=== PATIENT | female | born 1975 | race Caucasian/White ===

== ENCOUNTER 2017-12-25 17:08 | Emergency (ER) | payer BC ==
[2017-12-25] MEDS ORDERED: ORPHENADRINE 30 MG/ML 2 ML VIAL IM STA (19:27)
[2017-12-25] MEDS ORDERED: KETOROLAC 30 MG/ML 1 ML VIAL IM STA (19:27)
--- NOTE | 2017-12-25 19:38 | ED ---
Back Pain HPI - General Source: patient, RN notes reviewed Mode of arrival: ambulatory Limitations: no limitations <Anaya Hall - Last Filed: 12/25/17 19:28> <Ashley Malik - Last Filed: 12/25/17 19:52> - General Chief Complaint: Back Pain/Injury Stated Complaint: Back Pain Time Seen by Provider: 12/25/17 19:17 - History of Present Illness Initial Comments: This is a 42-year-old female who presents to the emergency department chief complaint of back pain. Patient states that she has had an ache in her right scapula. She states it started a few days ago after decorating for Halloween by carrying large pumpkins and bigg of hay. Patient states that she was very active, cleaning and mopping her house. 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 She states that the pain was excruciating. She states that the spasm and pain is brought on by moving her right arm and her neck. She denies any injuries, trauma or falls. She denies any neck pain. Denies fevers or chills, chest pain or shortness of breath, abdominal pain, nausea or vomiting. (Anaya Hall) - Related Data Home Medications Medication Instructions Recorded Confirmed Acetaminophen [Tylenol] 1,000 mg PO Q4-6H PRN 12/25/17 12/25/17 Gabapentin [Neurontin] 300 mg PO HS 12/25/17 12/25/17 Hydrocodone/Acetaminophen [[place] 1 tab PO Q6H PRN 12/25/17 12/25/17 7.5-325] Ibuprofen [Advil] 600 mg PO Q8HR PRN 12/25/17 12/25/17 Sertraline HCl [Zoloft] 50 mg PO HS 12/25/17 12/25/17 Zolpidem Tartrate [Ambien] 10 mg PO HS PRN 12/25/17 12/25/17 Previous Rx's Medication Instructions Recorded Cyclobenzaprine [Flexeril] 10 mg PO TID #15 tab 12/25/17 Ibuprofen 600 mg PO Q6HR #20 tablet 12/25/17 Allergies Allergy/AdvReac Type Severity Reaction Status Date / Time No Known Allergies Allergy Verified 12/25/17 17:40 Review of Systems ROS Other: All systems not noted in ROS Statement are negative. <Anaya Hall - Last Filed: 12/25/17 19:28> ROS Other: All systems not noted in ROS Statement are negative. <Ashley Malik P - Last Filed: 12/25/17 19:52> ROS Statement: Those systems with pertinent positive or pertinent negative responses have been documented in the HPI. Past Medical History Past Medical History: No Reported History History of Any Multi-Drug Resistant Organisms: None Reported Past Surgical History: Section, Cholecystectomy Additional Past Surgical History / Comment(s): tummy tuck, C section x 3, knee injections Past Psychological History: No Psychological Hx Reported Smoking Status: Former smoker Past Alcohol Use History: None Reported Past Drug Use History: None Reported <Anaya Hall - Last Filed: 12/25/17 19:28> General Exam Limitations: no limitations Back exam: Present: normal inspection, full ROM, tenderness (tenderness on palpation of paravertebral muscles at level of the mid-scapula ). Absent: paraspinal tenderness, vertebral tenderness <Anaya Hall - Last Filed: 12/25/17 19:28> <Ashley Malik P - Last Filed: 12/25/17 19:52> - General Exam Comments Initial Comments: General: Awake and alert, well-developed; in no apparent distress. HEENT: Head atraumatic, normocephalic. Pupils are equal, round and reactive to light. Extraocular movements intact. Oropharynx moist without erythema or exudate. Neck: Supple. Normal ROM. No tenderness. Cardiovascular: Regular rate and rhythm. No murmurs, rubs or gallops. Chest symmetrical. Respiratory: Lungs clear to auscultation bilaterally. No wheezes, rales or rhonchi. Normal respiratory effort with no use of accessory muscles. Musculoskeletal: Normal ROM, no tenderness bilateral upper and lower extremities. Ambulating normally. Skin: [place], warm and dry without rashes or lesions. Neurological: Alert and oriented x3. CN II-XII grossly intact. Speech is fluent and answers are appropriate. No focal neuro deficits. Psychiatric: Normal mood and affect. No overt signs of depression or anxiety noted. (Anaya Hall) Vital Signs 12/25/17 17:40 Temperature 98.3 F Pulse Rate 73 Respiratory 18 Rate Blood Pressure 143/82 O2 Sat by Pulse 96 Oximetry Medical Decision Making <Anaya Hall - Last Filed: 12/25/17 19:28> <Ashley Malik - Last Filed: 12/25/17 19:52> - Medical Decision Making This is a 42-year-old female who presents to the emergency department with chief complaint of back pain. Patient reports having right scapular pain for a few days after carrying pumpkins and large bigg of hay for Halloween decorating. She states that today she reached for her car keys, felt a sudden tightening and contraction in the muscle which caused excruciating pain. She reports pain is brought on by moving her neck and her right upper extremity. Patient is neurovascularly intact. No injuries, falls or trauma. Patient given Norflex and Toradol in the emergency department. Likely suffering from muscle strain. She will be discharged home with a prescription for ibuprofen and Flexeril. She is in no acute distress and will be discharged home at this time. She is in agreement with plan and voices understanding. All questions were answered. (Anaya Hall) I was available for consultation in the emergency department. The history and physical exam were done by the midlevel provider. I was consulted for this patient's care. I reviewed the case with the midlevel provider and based on their presentation of the patient, I agree with the assessment, medical decision making and plan of care as documented. (Ashley Malik) Disposition Is patient prescribed a controlled substance at d/c from ED?: No Time of Disposition: 19:40 <Anaya Hall - Last Filed: 12/25/17 19:28> <Ashley Malik - Last Filed: 12/25/17 19:52> Clinical Impression: Muscle strain of right upper back Disposition: HOME SELF-CARE Condition: Good Instructions: Muscle Strain (ED), Musculoskeletal Pain (ED) Additional Instructions: Please take medications as prescribed. Please follow up with primary care provider within 1-2 days. Return to emergency department if symptoms should worsen or any concerns arise. Prescriptions: Cyclobenzaprine [Flexeril] 10 mg PO TID #15 tab Ibuprofen 600 mg PO Q6HR #20 tablet Referrals: Zeus Ramírez MD [Primary Care Provider] - 1-2 days
[2017-12-25 20:16] VITALS: BP 134/66; PULSE 88; RESP 16; TEMP 98.2
== END 2017-12-25 20:16 | disposition home or self-care (01) ==
LOC: EC 17:08
DX: S29.012A Strain of muscle and tendon of back wall of thorax, initial encounter (principal); Z87.891 Personal history of nicotine dependence; Z79.899 Other long term (current) drug therapy; X50.0XXA Overexertion from strenuous movement or load, initial encounter
CPT/HCPCS: 99283; 96372 ×2; J2360; J1885

== ENCOUNTER 2022-07-17 18:19 | Emergency (ER) | payer BC ==
[2022-07-17 18:25] VITALS: RESP 18; TEMP 98
[2022-07-17] MEDS ORDERED: SODIUM CHLORIDE 0.9% 1,000 ML IV STA (18:33)
[2022-07-17] MEDS ORDERED: PANTOPRAZOLE 40 MG/10 ML VIAL IVP STA (18:46)
[2022-07-17] MEDS ORDERED: FAMOTIDINE 20 MG/2 ML VIAL IV STA (18:46)
--- NOTE | 2022-07-17 18:48 | ED ---
Chest Pain HPI - General Chief Complaint: Chest Pain Stated Complaint: Chest Pain Time Seen by Provider: 07/17/22 18:33 Source: patient Mode of arrival: ambulatory Limitations: no limitations - History of Present Illness Initial Comments: Patient is a 46-year-old female presents to the emergency department for chest pain. Over the past 5 days patient has had 2 episodes of chest pain, one more patient was sleeping and it woke her up, the other patient was lounging at home. Pain was in her lower chest which she describes as an aching and burning. It was associated with diaphoresis. No alleviating or precipitating, or exacerbating factors. No chest pain currently. She denies shortness of breath, nausea, vomiting. No fever, chills, cough, cold-like symptoms. Patient denies history of cardiac disease. She does have family history of cardiac disease including father who had myocardial infarction in his 40s. She is a nonsmoker. Denies illicit drug use. Denies alcohol use. - Related Data Home Medications Medication Instructions Recorded Confirmed Gabapentin [Neurontin] 300 mg PO TID PRN 12/25/17 07/17/22 Sertraline HCl [Zoloft] 50 mg PO HS 12/25/17 07/17/22 HYDROcodone/APAP 5-325MG [[place] 1 tab PO TID PRN 07/17/22 07/17/22 5-325] Phentermine HCl [Adipex-P] 37.5 mg PO DAILY 07/17/22 07/17/22 Zolpidem [Ambien] 5 mg PO HS PRN 07/17/22 07/17/22 Previous Rx's Medication Instructions Recorded Famotidine [Pepcid] 20 mg PO BID #28 tablet 07/17/22 Pantoprazole [Protonix] 40 mg PO DAILY #14 tab 07/17/22 Allergies Allergy/AdvReac Type Severity Reaction Status Date / Time No Known Allergies Allergy Verified 07/17/22 19:10 Review of Systems ROS Statement: Those systems with pertinent positive or pertinent negative responses have been documented in the HPI. ROS Other: All systems not noted in ROS Statement are negative. Past Medical History Past Medical History: No Reported History History of Any Multi-Drug Resistant Organisms: None Reported Past Surgical History: Section, Cholecystectomy Additional Past Surgical History / Comment(s): tummy robyn, C section x 3, knee injections, partial left knee replacement, Past Psychological History: No Psychological Hx Reported Past Alcohol Use History: None Reported Past Drug Use History: None Reported General Exam Limitations: no limitations General appearance: alert, in no apparent distress Head exam: Present: atraumatic, normocephalic, normal inspection Eye exam: Present: normal appearance, PERRL, EOMI. Absent: scleral icterus, conjunctival injection, periorbital swelling Neck exam: Present: normal inspection. Absent: tenderness, meningismus, ly mphadenopathy Respiratory exam: Present: normal lung sounds bilaterally. Absent: respiratory distress, wheezes, rales, rhonchi, stridor Cardiovascular Exam: Present: regular rate, normal rhythm, normal heart sounds. Absent: systolic murmur, diastolic murmur, rubs, gallop, clicks GI/Abdominal exam: Present: soft, normal bowel sounds. Absent: distended, tenderness, guarding, rebound, rigid Neurological exam: Present: alert, oriented X3, CN II-XII intact Psychiatric exam: Present: normal affect, normal mood Skin exam: Present: warm, dry, intact, normal color. Absent: rash Course Vital Signs 07/17/22 07/17/22 18:21 20:30 Temperature 98.0 F Pulse Rate 73 63 Respiratory 18 18 Rate Blood Pressure 169/94 147/96 O2 Sat by Pulse 99 100 Oximetry Chest Pain MDM - MDM EKG taken at 18:32, interpreted by me Sinus rhythm, no ST segment or T-wave abnormality Ventricular rate 63, VA interval 160, QRS duration 98, QTc 402 Was pt. sent in by a medical professional or institution (, PA, MAINTENANCE PERSON, urgent care, hospital, or [facility]...) When possible be specific @ -No Did you speak to anyone other than the patient for history (EMS, parent, family, police, friend...)? What history was obtained from this source @ -No Did you review nursing and triage notes (agree or disagree)? Why? @ -I reviewed and agree with nursing and triage notes Were old charts reviewed (outside hosp., previous admission, EMS record, old EKG, old radiological studies, urgent care reports/EKG's, [facility] records)? Report findings @ -No old charts were reviewed Differential Diagnosis (chest pain, altered mental status, abdominal pain women, abdominal pain men, vaginal bleeding, weakness, fever, dyspnea, syncope, headache, dizziness, GI bleed, back pain, seizure, CVA, palpatations, mental health)? @ -Differential Chest Pain: Stable Angina, Unstable Angina, STEMI, NSTEMI Aortic Dissection, Pneumothorax, Musculoskeletal, Esophageal Spasm GERD, Cholecystitis, Pancreatitis, Zoster, this is not meant to be an all-inclusive list. EKG interpreted by me (3pts min.). @ -As above X-rays interpreted by me (1pt min.). @ -Yes, chest x-ray negative for acute process CT interpreted by me (1pt min.). @ -None done U/S interpreted by me (1pt. min.). @ -None done What testing was considered but not performed or refused? (CT, X-rays, U/S, labs)? Why? @ -None What meds were considered but not given or refused? Why? @ -None Did you discuss the management of the patient with other professionals (professionals i.e. , PA, MAINTENANCE PERSON, lab, RT, psych nurse, director social service, lye machine operator, teacher, business services officer, social work case manager)? Give summary @ -No Was smoking cessation discussed for >3mins.? @ -No Was critical care preformed (if so, how long)? @ -No Were there social determinants of health that impacted care today? How? (Homelessness, low income, unemployed, alcoholism, drug addiction, transportation, low edu. Level, literacy, decrease access to med. care, senior care, rehab)? @ -No Was there de-escalation of care discussed even if they declined (Discuss DNR or withdrawal of care, Hospice)? DNR status @ -No What co-morbidities impacted this encounter? (DM, HTN, Smoking, COPD, CAD, Cancer, CVA, ARF, Chemo, Hep., AIDS, mental health diagnosis, sleep apnea, morbid obesity)? @ -None Was patient admitted / discharged? Hospital course, mention meds given and route, prescriptions, significant lab abnormalities, going to OR and other pertinent info. @ -Patient presenting for chest pain episodes. Patient feeling well currently vitals within normal limits. EKG shows sinus rhythm with no evidence of acute ischemia. Laboratory studies obtained. D-dimer and troponin are within normal limits. Chest x-ray obtained showing no acute process. Results discussed with patient. Heart score is 3. We discussed admission for cardiology evaluation as patient has never had stress test or echocardiogram. It is also reasonable for patient to be evaluated outpatient with strict return parameters. Patient requesting discharge. She was discharged stable condition with cardiology referral. Undiagnosed new problem with uncertain prognosis? @ -No Drug Therapy requiring intensive monitoring for toxicity (Heparin, Nitro, Insulin, Cardizem)? @ -No Were any procedures done? @ -No Diagnosis/symptom? @ -Chest pain Acute, or Chronic, or Acute on Chronic? @ -Acute Uncomplicated (without systemic symptoms) or Complicated (systemic symptoms)? @ -default Side effects of treatment? @ -No Exacerbation, Progression, or Severe Exacerbation? @ -No Poses a threat to life or bodily function? How? (Chest pain, [place], [place], pneumonia, PE, COPD, DKA, ARF, appy, cholecystitis, CVA, Diverticulitis, Homicidal, Suicidal, threat to staff... and all critical care pts) @ -No Dr. Adam is my attending Disposition Clinical Impression: Chest pain Disposition: HOME SELF-CARE Condition: Good Instructions (If sedation given, give patient instructions): Chest Pain (ED), GERD (Gastroesophageal Reflux Disease) (ED) Additional Instructions: Take medication as directed. Follow-up with cardiology in 1-2 days. Return to emergency department if you experience new, concerning, or worsening symptoms. Prescriptions: Famotidine [Pepcid] 20 mg PO BID #28 tablet Pantoprazole [Protonix] 40 mg PO DAILY #14 tab Is patient prescribed a controlled substance at d/c from ED?: No Referrals: Zeus Ramírez MD [Primary Care Provider] - 1-2 days Josiah Manuel MD [STAFF PHYSICIAN] - 1-2 days
[2022-07-17 19:06] LABS: Basophils # (A) 0.1 k/uL (0-0.2); Basophils % (A) 1 %; Eosinophils # (A) 0.1 k/uL (0-0.7); Eosinophils % (A) 2 %; HCT 37.1 % (34.0-46.0); HGB 12.7 gm/dL (11.4-16.0); Lymphocytes # (A) 1.9 k/uL (1.0-4.8); Lymphocytes % (A) 23 %; MCH 28.7 pg (25.0-35.0); MCHC 34.2 g/dL (31.0-37.0); MCV 84.1 fL (80.0-100.0); Mean Platelet Volume 7.8; Monocytes # (A) 0.3 k/uL (0-1.0); Monocytes % (A) 4 %; Neutrophils # (A) 5.9 k/uL (1.3-7.7); Neutrophils % (A) 70 %; Platelet Count 325 k/uL (150-450); RBC 4.42 m/uL (3.80-5.40); RDW 13.2 % (11.5-15.5); WBC 8.4 k/uL (3.8-10.6)
[2022-07-17 19:14] LABS: Appearance,Urine Clear (Clear); Bilirubin,Urine Negative (Negative); Blood,Urine Negative (Negative); Color,Urine Light Yellow; Glucose,Urine (UA) Negative (Negative); Ketones,Urine Negative (Negative); Leukocyte Esterase,Urine Negative (Negative); Nitrite,Urine Negative (Negative); Protein,Urine Negative (Negative); Specific Gravity,Urine 1.006 (1.001-1.035); Urobilinogen,Urine <2.0 mg/dL (<2.0)
--- NOTE | 2022-07-17 19:19 | XR ---
EXAMINATION TYPE: XR chest 2V DATE OF EXAM: 07/17/2022 7:12 PM COMPARISON: None TECHNIQUE: XR chest 2V . CLINICAL INDICATION:Female, 46 years old with history of Chest Pain; FINDINGS: Lungs/Pleura: There is no evidence of pleural effusion, focal consolidation, or pneumothorax. Pulmonary vascularity: Unremarkable. Heart/mediastinum: Cardiomediastinal silhouette is unremarkable. Musculoskeletal: No acute osseous pathology. IMPRESSION: No acute cardiopulmonary disease/process.
[2022-07-17 19:27] LABS: ALT 15 U/L (4-34); AST 19 U/L (14-36); African American GFR (CKD) >90 (>60 ml/min/1.73 sqM); Albumin 4.5 g/dL (3.5-5.0); Alkaline Phosphatase 67 U/L (38-126); Anion Gap 10 mmol/L; Blood Urea Nitrogen 7 mg/dL (7-17); Calcium 9.1 mg/dL (8.4-10.2); Carbon Dioxide 28 mmol/L (22-30); Chloride 102 mmol/L (98-107); Glucose 90 mg/dL (74-99); Non-African American GFR(CKD) >90 (>60 ml/min/1.73 sqM); Potassium 3.8 mmol/L (3.5-5.1); Sodium 140 mmol/L (137-145); Total Bilirubin 0.3 mg/dL (0.2-1.3); Total Protein 7.9 g/dL (6.3-8.2)
[2022-07-17 19:32] LABS: INR 0.9 (<1.2); Prothrombin Time 9.9 sec (9.0-12.0)
[2022-07-17 21:21] VITALS: BP 147/96; PULSE 63
== END 2022-07-17 20:30 | disposition home or self-care (01) ==
LOC: EC 18:19
DX: R07.9 Chest pain, unspecified (principal)
CPT/HCPCS: 36415; 93005; 85379; 80053; 83735; 84484; 85025; 85610; 85730; 81003; 71046; 99285; 96374; 96375; 96361 ×2; C9113